=== PATIENT | male | born 1970 | race Caucasian/White ===

== ENCOUNTER 2021-01-02 13:52 | Emergency (ER) | payer SELFPAY ==
--- NOTE | 2021-01-02 16:03 | EDM.PDOC ---
ED HPI GENERAL MEDICAL PROBLEM - General Chief Complaint: ENT Problem Stated Complaint: BLISTER UNDER TUNG Time Seen by Provider: 01/02/21 15:41 Source of Information: Reports: Patient History Limitations: Reports: No Limitations - History of Present Illness INITIAL COMMENTS - FREE TEXT/NARRATIVE: The patient presents with a lesion under his tongue. This started over a week ago and now it is more swollen. He has no drainage form it. It hurts now. He has no fever, chills or cough. Onset: Gradual Duration: Week(s): Location: Reports: Other (tongue) Quality: Reports: Sharp Severity: Moderate Improves with: Reports: None Worsens with: Reports: None Associated Symptoms: Reports: No Other Symptoms - Related Data Home Meds: Home Meds Penicillin V Potassium 500 mg PO Q6HR #40 tab 01/02/21 [Rx] Past Medical History HEENT History: Reports: None Cardiovascular History: Reports: None Respiratory History: Reports: None Gastrointestinal History: Reports: None Genitourinary History: Reports: None Neurological History: Reports: None Psychiatric History: Reports: None Endocrine/Metabolic History: Reports: None Hematologic History: Reports: None Immunologic History: Reports: None Oncologic (Cancer) History: Reports: None Dermatologic History: Reports: None - Infectious Disease History Infectious Disease History: Reports: None - Past Surgical History Head Surgeries/Procedures: Reports: None HEENT Surgical History: Reports: None Cardiovascular Surgical History: Reports: None GI Surgical History: Reports: None Male Surgical History: Reports: None Endocrine Surgical History: Reports: None Musculoskeletal Surgical History: Reports: Other (See Below) Other Musculoskeletal Surgeries/Procedures:: femur surgery at 8 years of age Social & Family History - Tobacco Use Tobacco Use Status *Q: Current Every Day Tobacco User Years of Tobacco use: 25 Packs/Tins Daily: 2 Second Hand Smoke Exposure: No - Recreational Drug Use Recreational Drug Use: No ED ROS ENT - Review of Systems Review Of Systems: See Below Constitutional: Reports: No Symptoms HEENT: Reports: Other (tongue swelling and pain) Respiratory: Reports: No Symptoms Cardiovascular: Reports: No Symptoms Endocrine: Reports: No Symptoms GI/Abdominal: Reports: No Symptoms ED EXAM, ENT - Physical Exam Exam: See Below Exam Limited By: No Limitations General Appearance: Alert, No Apparent Distress Ears: Normal External Exam Nose: Normal Inspection Mouth/Throat: Other (Swelling and erythema to the bottom of the right side of the tongue. No drainage at this time.) Head: Atraumatic, Normocephalic Neck: Normal Inspection, Supple, Non-Tender Respiratory/Chest: No Respiratory Distress Course - Vital Signs Last Recorded V/S: Last Vital Signs Temp 98 F 01/02/21 15:36 Pulse 72 01/02/21 15:36 Resp 16 01/02/21 15:36 BP 124/78 01/02/21 15:36 Pulse Ox 97 01/02/21 15:36 - Re-Assessments/Exams Free Text/Narrative Re-Assessment/Exam: 01/02/21 16:01 I feel this is an infection. I will get him on penicillin and follow up wit Dr Montanez. Departure - Departure Time of Disposition: 16:05 Disposition: Home, Self-Care 01 Condition: Good Clinical Impression: Tongue infection - Discharge Information *PRESCRIPTION DRUG MONITORING PROGRAM REVIEWED*: Not Applicable *COPY OF PRESCRIPTION DRUG MONITORING REPORT IN PATIENT [place]: Not Applicable Prescriptions: Penicillin V Potassium 500 mg PO Q6HR #40 tab Referrals: PCP,None [Primary Care Provider] - Enrrique Montanez MD [Ordering Only Provider] - 1 Week Additional Instructions: Take the penicillin 4 times per day for 10 days. Try to keep your mouth clean by gently brushing 2 times per day. Follow up with Dr Montanez within a week. Please return if you are worse. Sepsis Event Note (ED) - Focused Exam Vital Signs: Vital Signs Temp Pulse Resp BP Pulse Ox 01/02/21 15:36 98 F 72 16 124/78 97
== END 2021-01-02 16:17 | disposition home or self-care (01) ==
LOC: JD.ED 13:52
DX: K14.0 Glossitis (principal); Z72.0 Tobacco use
CPT/HCPCS: 99282